=== PATIENT | female | born 1950 | race Caucasian/White ===

== ENCOUNTER 2019-04-26 09:15 | Outpatient (REF) | payer MEDICARE, SELFPAY ==
[2019-04-26 21:36] LABS: Abs Immature Grans 0.11 k/cumm (0.0-0.09); Absolute Basophil Count 0.03 k/cumm (0.0-0.2); Absolute Eosinophil Count 0.16 k/cumm (0.0-0.7); Absolute Lymphocyte Count 1.62 k/cumm (1.2-3.4); Absolute Monocyte Count 0.92 k/cumm (0.11-0.7); Absolute Neutrophil Count 7.65 k/cumm (1.2-6.7); Basophils % 0.3; Eosinophils % 1.5; HCT 50.3 % (36.0-46.0); HGB 15.6 g/dL (12.0-15.5); Lymphocytes % 15.4; Mean Platelet Volume 10.6 fL (8.0-11.0); Monocytes % 8.8; Platelet Count 192 x1000/uL (130-400); RBC 5.03 m/cumm (4.00-5.20); RBC Distribution Width 14.7 % (11.7-14.6); White Blood Cell Count 10.49 k/cumm (4.4-10.8)
[2019-04-26 21:45] LABS: ALT 34 U/L (14-59); AST 13 U/L (15-37); Albumin 2.9 g/dL (3.4-5.0); Alkaline Phosphatase 60 U/L (46-116); Anion Gap 3.7 mmol/L (3-11); BUN 19 mg/dL (7-18); Bilirubin, Total 0.4 mg/dL (0.2-1.0); CO2 35.3 mmol/L (21.0-32.0); CREATININE 0.63 mg/dL (0.55-1.02); Calcium 8.7 mg/dL (8.5-10.1); Calculated LDL 136 mg/dL (<100); Chloride 104 mmol/L (98-107); Cholesterol 250 mg/dL (<200); Glucose 104 mg/dL (74-106); HDL Cholesterol 80 mg/dL (40-60); Potassium 4.5 mmol/L (3.5-5.1); Sodium 143 mmol/L (136-145); Total Protein 6.1 g/dL (6.4-8.2); Triglyceride 171 mg/dL (<150)
[2019-04-26 21:47] LABS: Hemoglobin A1C 6.3 % (3.8-5.6)
== END 2019-04-26 09:35 ==
LOC: NCHCN 09:15
PROVIDERS: PCP Nurse Practitioner Family; Visit Provider Nurse Practitioner Family
DX: D72.829 Elevated white blood cell count, unspecified (principal); R73.09 Other abnormal glucose; R79.89 Other specified abnormal findings of blood chemistry
CPT/HCPCS: 80053; 80061; 83036; 85025

== ENCOUNTER 2021-07-03 18:37 | Outpatient (REF) | payer MEDICARE, MEDICAID, SELFPAY ==
[2021-07-03 21:37] LABS: Hemoglobin A1C 6.3 % (<5.7)
[2021-07-03 21:44] LABS: Anion Gap 2.7 mmol/L (3-11); BUN 10 mg/dL (7-18); CO2 34.3 mmol/L (21.0-32.0); Calcium 9.2 mg/dL (8.5-10.1); Calculated LDL 138 mg/dL (<100); Chloride 103 mmol/L (98-107); Cholesterol 225 mg/dL (<200); Estimated GFR 54.66 (mL/min/1.73m2); Glucose 100 mg/dL (74-106); HDL Cholesterol 73 mg/dL (40-60); Potassium 4.5 mmol/L (3.5-5.1); Sodium 140 mmol/L (136-145); Triglyceride 70 mg/dL (<150)
== END 2021-07-03 18:38 | disposition home or self-care (01) ==
LOC: NCHCN 18:37
PROVIDERS: PCP Nurse Practitioner Family; Visit Provider Nurse Practitioner Family
DX: R73.03 Prediabetes (principal); E78.5 Hyperlipidemia, unspecified; D72.829 Elevated white blood cell count, unspecified
CPT/HCPCS: 80048; 80061; 83036

== ENCOUNTER 2022-07-30 15:15 | Outpatient (REF) | payer MEDICARE, MEDICAID, SELFPAY ==
[2022-07-30 16:03] LABS: Hemoglobin A1C 5.8 % (<5.7)
[2022-07-30 16:14] LABS: ALT 29 U/L (14-59); AST 24 U/L (15-37); Albumin 3.6 g/dL (3.4-5.0); Alkaline Phosphatase 77 U/L (46-116); Anion Gap 3.8 mmol/L (3-11); BUN 12 mg/dL (7-18); Bilirubin, Total 0.6 mg/dL (0.2-1.0); CO2 33.2 mmol/L (21.0-32.0); CREATININE 0.8 mg/dL (0.55-1.02); Calcium 9.2 mg/dL (8.5-10.1); Calculated LDL 126 mg/dL (<100); Chloride 104 mmol/L (98-107); Cholesterol 214 mg/dL (<200); Estimated GFR 78.24 (mL/min/1.73m2); Glucose 103 mg/dL (74-106); HDL Cholesterol 77 mg/dL (40-60); Potassium 4.5 mmol/L (3.5-5.1); Sodium 141 mmol/L (136-145); Total Protein 8.2 g/dL (6.4-8.2); Triglyceride 57 mg/dL (<150)
== END 2022-07-30 15:16 | disposition home or self-care (01) ==
LOC: NCHCN 15:15
PROVIDERS: PCP Nurse Practitioner Family; Visit Provider Nurse Practitioner Family
DX: R73.03 Prediabetes (principal); E78.5 Hyperlipidemia, unspecified
CPT/HCPCS: 80053; 80061; 83036

== ENCOUNTER 2023-08-10 08:29 | Outpatient (REF) | payer MEDICARE, MEDICAID, SELFPAY ==
[2023-08-10 15:49] LABS: HCT 51.4 % (36.0-46.0); HGB 16.1 g/dL (11.2-15.7); MCH 30.4 pg (27.0-33.0); MCHC 31.3 % (32.0-36.0); MCV 97 fL (80-95); MPV 11.9 fL (8.0-11.0); Platelet Count 171 10^3/uL (130-400); RBC 5.29 10^6/uL (3.93-5.22); RDW 13.8 % (11.7-14.6); RDW-SD 49.9 fL; WBC 6.46 10^3/uL (4.4-10.8)
[2023-08-10 16:07] LABS: ALT 21 U/L (14-59); AST 24 U/L (15-37); Albumin 3.2 g/dL (3.4-5.0); Alkaline Phosphatase 113 U/L (46-116); Anion Gap 4.3 mmol/L (3-11); BUN 13 mg/dL (7-18); Bilirubin, Total 0.6 mg/dL (0.2-1.0); CO2 33.7 mmol/L (21.0-32.0); CREATININE 0.7 mg/dL (0.55-1.02); Calcium 9.1 mg/dL (8.5-10.1); Calculated LDL 115 mg/dL (<100); Chloride 104 mmol/L (98-107); Cholesterol 203 mg/dL (<200); Estimated GFR 91.26 (mL/min/1.73m2); Glucose 104 mg/dL (74-106); HDL Cholesterol 77 mg/dL (40-60); Potassium 5.6 mmol/L (3.5-5.1); Sodium 142 mmol/L (136-145); Total Protein 7.8 g/dL (6.4-8.2); Triglyceride 55 mg/dL (<150)
[2023-08-10 16:57] LABS: Hemoglobin A1C 5.8 % (<5.7)
== END 2023-08-10 08:30 | disposition home or self-care (01) ==
LOC: NCHCN 08:29
PROVIDERS: PCP Nurse Practitioner Family; Visit Provider Nurse Practitioner Family
DX: E78.5 Hyperlipidemia, unspecified (principal); R73.03 Prediabetes; E66.9 Obesity, unspecified
CPT/HCPCS: 80053; 80061; 85027; 83036

== ENCOUNTER 2023-08-19 15:33 | Outpatient (REF) | payer MEDICARE, MEDICAID, SELFPAY ==
[2023-08-19 22:04] LABS: Anion Gap 4.7 mmol/L (3-11); BUN 21 mg/dL (7-18); CO2 35.3 mmol/L (21.0-32.0); CREATININE 0.8 mg/dL (0.55-1.02); Calcium 10.1 mg/dL (8.5-10.1); Chloride 102 mmol/L (98-107); Estimated GFR 77.75 (mL/min/1.73m2); Glucose 86 mg/dL (74-106); Potassium 4.7 mmol/L (3.5-5.1); Sodium 142 mmol/L (136-145)
== END 2023-08-19 15:34 | disposition home or self-care (01) ==
LOC: NCHCN 15:33
PROVIDERS: PCP Nurse Practitioner Family; Visit Provider Nurse Practitioner Family
DX: E87.5 Hyperkalemia (principal)
CPT/HCPCS: 80048

== ENCOUNTER 2024-11-17 15:39 | Outpatient (REF) | payer MEDICARE, SELFPAY ==
[2024-11-17 15:58] LABS: HCT 47.8 % (36.0-46.0); HGB 14.5 g/dL (11.2-15.7); MCH 29.8 pg (27.0-33.0); MCHC 30.3 % (32.0-36.0); MCV 98 fL (80-95); MPV 12.0 fL (8.0-11.0); Platelet Count 189 10^3/uL (130-400); RBC 4.87 10^6/uL (3.93-5.22); RDW 13.7 % (11.7-14.6); RDW-SD 50.2 fL; WBC 7.69 10^3/uL (4.4-10.8)
[2024-11-17 17:05] LABS: Hemoglobin A1C 5.7 % (<5.7)
[2024-11-17 18:13] LABS: ALT 24 U/L (14-59); AST 23 U/L (15-37); Albumin 3.4 g/dL (3.4-5.0); Alkaline Phosphatase 67 U/L (46-116); Anion Gap 4.1 mmol/L (3-11); BUN 11 mg/dL (7-18); Bilirubin, Total 0.5 mg/dL (0.2-1.0); CO2 32.9 mmol/L (21.0-32.0); Calcium 9.4 mg/dL (8.5-10.1); Calculated LDL 112 mg/dL (<100); Chloride 105 mmol/L (98-107); Cholesterol 195 mg/dL (<200); Estimated GFR 94.13 (mL/min/1.73m2); Glucose 91 mg/dL (74-106); HDL Cholesterol 75 mg/dL (>or=50); Potassium 4.9 mmol/L (3.5-5.1); Sodium 142 mmol/L (136-145); Total Protein 7.8 g/dL (6.4-8.2); Triglyceride 41 mg/dL (<150)
== END 2024-11-17 15:40 | disposition home or self-care (01) ==
LOC: NCHCN 15:39
PROVIDERS: PCP Nurse Practitioner Family; Visit Provider Nurse Practitioner Family
DX: R73.03 Prediabetes (principal)
CPT/HCPCS: 80053; 80061; 85027; 83036